=== PATIENT | male | born 1970 | race American Indian/Alaskan Native ===

== ENCOUNTER 2017-03-31 10:37 | Emergency (ER) | payer SELFPAY ==
[2017-03-31 10:39] VITALS: BMI 35.2
[2017-03-31 10:59] VITALS: RESP 16; TEMP 98.2
[2017-03-31] MEDS ORDERED: Sodium Chloride 0.9% 1,000 ML IV STA (11:38)
[2017-03-31 12:11] LABS: ADD MANUAL DIFF? NO
[2017-03-31 12:18] LABS: URINE BILIRUBIN NEGATIVE (NEGATIVE); URINE BLOOD NEGATIVE (NEGATIVE); URINE GLUCOSE (UA) >=1000 mg/dL (NEGATIVE); URINE KETONE NEGATIVE (NEGATIVE); URINE LEUKOCYTE ESTERASE NEGATIVE Leu/uL (NEGATIVE); URINE PROTEIN NEGATIVE mg/dL (<30 mg/dL); URINE UROBILINOGEN 0.2 E.U./dL (<1 E.U./dL)
[2017-03-31 12:19] LABS: BASO # 0.02 K/mm3 (0.0-2.0); BASO % 0.2 % (0.0-3.0); EOS # 0.2 (0.0-0.7); EOS % 2.1 % (1.5-5.0); GRAN # 5.61 (1.4-6.5); GRAN % 59.2 % (50.0-68.0); HEMATOCRIT 40.6 % (42.0-52.0); LYMPH # 3.1 (1.2-3.4); LYMPH % 32.5 % (22.0-35.0); MEAN CELL VOLUME 88.5 fL (80.0-105.0); MEAN CORPUSCULAR HEMOGLOBIN 30.5 pg (25.0-35.0); MEAN CORPUSCULAR HGB CONC 34.5 g/dl (31.0-37.0); MEAN PLATELET VOLUME 10.7 fl (7.0-11.0); MONO # 0.6 (0.1-0.6); PLATELET COUNT 238 10^3/uL (120.0-450.0); RED CELL DISTRIBUTION WIDTH 12.7 % (11.5-14.5); WHITE BLOOD COUNT 9.5 10^3/ul (4.5-11.0)
[2017-03-31 12:20] LABS: URINE APPEARANCE CLEAR (CLEAR); URINE COLOR YELLOW (YELLOW)
[2017-03-31 12:28] LABS: ALB/GLOB RATIO 1.4 (1.1-1.8); ALKALINE PHOSPHATASE 111 U/L (38-133); ALT/SGPT 63 U/L (7-56); AST/SGOT 31 U/L (15-59); BILIRUBIN,TOTAL 0.8 mg/dL (0.2-1.3); BLOOD UREA NITROGEN 11 mg/dL (7-21); CALCIUM 9.7 mg/dL (8.4-10.5); CARBON DIOXIDE 24 mmol/L (21-33); CHLORIDE 98 mmol/L (98-107); GFR AFRICAN-AMERICAN > 60; POTASSIUM 4.7 mmol/L (3.6-5.0); SODIUM 134 mmol/L (132-148); TOTAL PROTEIN 8.5 g/dL (5.8-8.3)
[2017-03-31 12:55] LABS: GLUCOSE,RANDOM 332 mg/dL (70-110)
--- NOTE | 2017-03-31 13:39 | ED PDOC ---
Arrival/HPI - General Chief Complaint: High Blood Sugar Time Seen by Provider: 03/31/17 11:18 Historian: Patient - History of Present Illness Narrative History of Present Illness (Text): 03/31/17 13:36 Patient complains of a several day history of elevated blood sugar. 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 States that he has been checking his blood glucose on a daily basis and his sugars have been fluctuating from 200 -300 daily and postprandial. Patient states that he denies any history of diabetes however has a strong family history, stating that his sister is diabetic and one of his parents. Otherwise: has no complaints and feels well, (- ) vomiting, (-) diarrhea, (-) fever, (-) chest pain, (-) difficulty breathing, ( -) headache, (-) dizziness, (-) abdominal pain, (-) urinary symptoms, (-) polyuria, (-) polydipsia, (-) polyphagia, (-) melena, (-) hematochezia. Patient adds that he has recently started modifying his diet and has cut out "bad" carbohydrates. PMD [place] Past Medical History - Provider Review Nursing Documentation Reviewed: Yes - Psychiatric Hx Substance Use: No - Anesthesia Hx Anesthesia: No Hx Anesthesia Reactions: No Hx Malignant Hyperthermia: No Family/Social History - Physician Review Nursing Documentation Reviewed: Yes Family/Social History: Diabetes Smoking Status: Current Some Days Smoker Hx Alcohol Use: No Hx Substance Use: No Allergies/Home Meds Allergies/Adverse Reactions: Allergies No Known Allergies Allergy (Verified 07/19/16 23:54) Review of Systems - Review of Systems Constitutional: Normal. absent: Fatigue, Weight Change, Fevers Respiratory: Normal. absent: SOB, Cough, Sputum Cardiovascular: Normal. absent: Chest Pain, Palpitations, Edema Gastrointestinal: Normal, Appetite Changes. absent: Abdominal Pain, Stool Changes Genitourinary Male: Normal. absent: Dysuria, Frequency, Hematuria Musculoskeletal: Normal. absent: Arthralgias, Back Pain, Neck Pain Skin: Normal. absent: Rash, Pruritis, Skin Lesions Neurological: Normal. absent: Headache, Dizziness, Focal Weakness Physical Exam - Physical Exam Narrative Physical Exam (Text): 03/31/17 13:40 GENERAL APPEARANCE: Patient is awake, alert, oriented x 3, in no acute distress. SKIN: Warm, dry; (-) cyanosis. EYES: (-) conjunctival pallor, (-) scleral icterus. ENMT: Mucous membranes moist. NECK: (-) tenderness, (-) stiffness, (-) lymphadenopathy. CHEST AND RESPIRATORY: (-) rales, (-) rhonchi, (-) wheezes; breath sounds equal bilaterally. HEART AND CARDIOVASCULAR: (-) irregularity; (-) murmur, (-) gallop. ABDOMEN AND GI: (-) distention. Bowel sounds active; (-) tenderness, (-) guarding, (-) rebound, (-) palpable masses, (-) CVA tenderness. EXTREMITIES: (-) deformity, (-) edema, (+) distal pulses. NEURO AND PSYCH: Mental status as above; (-) focal findings. Vital Signs Temp Pulse Resp BP Pulse Ox 03/31/17 14:03 73 16 130/73 98 03/31/17 10:47 98.2 F 76 16 129/93 H 99 Finger Stick Blood Glucose: 275 Medical Decision Making ED Course and Treatment: 03/31/17 13:40 46 yo M c/o hyperglycemia, with significant FH of DM, has no other complaints. Plan: -- Labs -- IV fluids -- Urinalysis -- Reassess and disposition Re-evaluation Time: 13:41 Reassessment Condition: Re-examined, Unchanged (Patient laying in bed in no acute distress, no complaints at this time. IV fluids still infusing. Labs reviewed and discussed with the patient. Repeat FS 272. Advised close outpatient f/u with pmd without fail in the next 2 days. Continue to check FS 3- 4 x a day, first in the AM before a meal and 2 hours postprandial. Continue with diet modifications. ) - Lab Interpretations Lab Results: 03/31/17 12:00 03/31/17 12:00 Lab Results 03/31/17 12:00: Sodium 134, Potassium 4.7, Chloride 98, Carbon Dioxide 24, Anion Gap 17, BUN 11, Creatinine 0.8, Est GFR ( Amer) > 60, Est GFR (Non- Af Amer) > 60, Random Glucose 332 H*, Calcium 9.7, Total Bilirubin 0.8, AST 31, ALT 63 H, Alkaline Phosphatase 111, Total Protein 8.5 H, Albumin 5.0 H, Globulin 3.5, Albumin/Globulin Ratio 1.4 03/31/17 12:00: WBC 9.5, RBC 4.59, Hgb 14.0, Hct 40.6 L, MCV 88.5, MCH 30.5, MCHC 34.5, RDW 12.7, Plt Count 238, MPV 10.7, Gran % 59.2, Lymph % (Auto) 32.5, [place] % (Auto) 6.0, Eos % (Auto) 2.1, Baso % (Auto) 0.2, Gran # 5.61, Lymph # 3.1 , [place] # 0.6, Eos # 0.2, Baso # 0.02 03/31/17 11:55: Urine Color Yellow, Urine Appearance Clear, Urine pH 6.0, Ur Specific [place] 1.015, Urine Protein Negative, Urine Glucose (UA) >=1000, Urine Ketones Negative, Urine Blood Negative, Urine Nitrate Negative, Urine Bilirubin Negative, Urine Urobilinogen 0.2, Ur Leukocyte Esterase Negative I have reviewed the lab results: Yes (glucose 332, Anion gap 12.) - Medication Orders Current Medication Orders: Discontinued Medications Sodium Chloride (Sodium Chloride 0.9%) 1,000 mls @ 1,000 mls/hr IV .Q1H STA Stop: 03/31/17 12:37 Last Admin: 03/31/17 12:04 Dose: 1,000 mls/hr - PA / [employer] / Resident Statement /DO has reviewed & agrees with the documentation as recorded. Disposition/Present on Arrival - Present on Arrival Any Indicators Present on Arrival: No History of DVT/PE: No History of Uncontrolled Diabetes: No Urinary Catheter: No History of Decub. Ulcer: No History Surgical Site Infection Following: None - Disposition Have Diagnosis and Disposition been Completed?: Yes Diagnosis: Diabetes mellitus, new onset Disposition: HOME/ ROUTINE Disposition Time: 14:00 Patient Plan: Discharge Condition: GOOD Discharge Instructions (ExitCare): How to Check Your Blood Sugar (ED), Diabetes Mellitus Type 2 in Adults (ED) Print Language: [place] Additional Instructions: Thank you for letting us take care of you today. You were treated for new onset diabetes. The emergency medical care you received today was directed at your acute symptoms. If you were prescribed any medication, please fill it and take as directed. It may take several days for your symptoms to resolve. Return to the Emergency Department if your symptoms worsen, do not improve, or if you have any other problems. Please contact your doctor in 2 days for re-evaluation and follow up. Bring any paperwork you were given at discharge with you along with any medications you are taking to your follow up visit. Our treatment cannot replace ongoing medical care by a primary care provider (PCP) outside of the emergency department. Thank you for allowing the [facility] team to be part of your care today. Prescriptions: metFORMIN [glucOPHAGE] 500 mg PO DAILY #30 tab Referrals: Tano Tamayo MD [Primary Care Provider] - Follow up with primary Forms: WORK NOTE
[2017-03-31 14:04] VITALS: BP 130/73; PULSE 73; O2SAT 98
== END 2017-03-31 14:17 | disposition home or self-care (01) ==
LOC: ED 10:37
DX: E11.9 Type 2 diabetes mellitus without complications (principal); Z83.3 Family history of diabetes mellitus
CPT/HCPCS: 80053; 81003; 85025; 99285; J7040